=== PATIENT | male | born 2000 | race Caucasian/White ===

== ENCOUNTER 2021-10-27 09:19 | Outpatient (REF) | payer OTHER, MEDICAID, SELFPAY ==
[2021-10-27 11:36] LABS: Cholesterol 155 mg/dL; Glucose Fasting 95 mg/dL (60-99); HDL Cholesterol 23 mg/dL; LDL Cholesterol Calculated 54 mg/dl; Triglycerides 391 mg/dL
[2021-10-27 11:56] LABS: Estimated Average Glucose 111 mg/dL; Hemoglobin A1C 148.9187 umol/L; Hemoglobin A1c % 5.5 %
== END 2021-10-27 09:20 | disposition home or self-care (01) ==
LOC: HO.HMGCLDS 09:19
PROVIDERS: Absent Provider Nurse Practitioner Family; Visit Provider Pediatrics
DX: Z00.00 Encounter for general adult medical examination without abnormal findings (principal)
CPT/HCPCS: 36415; 80061; 82947; 83036

== ENCOUNTER → 2021-12-23 07:27 | Outpatient (REF) | payer OTHER, MEDICAID, SELFPAY ==
--- NOTE | 2021-12-23 07:30 | CA_ITS ---
Transthoracic Echocardiogram Patient (Last, First, Middle): Chicho Broussard Sean Gender: Male Date of : 2000 Age: 21 Procedure Date: 12/23/2021 Procedure Type: Transthoracic Echocardiogram Location: OP Height: 182.88 cm Weight: 113.4 kg BSA: 2.34 m2 Heart Rate: bpm BP: 115 / 75 mmHg Speedometer Mechanic: TO/YR Referring MD: Edward Nunez [facility] Symptoms: R01.1 - Cardiac murmur, unspecified Study Quality: Fair Conclusions: - Normal left ventricular size, thickness, systolic function, and wall motion. The visually estimated ejection fraction is between 55-60%. Diastolic function is normal for age. - Normal right ventricular cavity size and systolic function. Findings Left Ventricle Normal left ventricular size, thickness, systolic function, and wall motion. The visually estimated ejection fraction is between 55-60%. Diastolic function is normal for age. Right Ventricle Normal right ventricular cavity size and systolic function. Atria Both atria are normal in size. Aortic Valve Normal aortic valve structure and function. There is no aortic valve stenosis. There is no aortic valve regurgitation. Mitral Valve Normal mitral valve structure and function. There is no mitral valve regurgitation. There is no mitral valve stenosis. Pulmonic Valve Normal pulmonic valve structure and function. Tricuspid Valve Normal tricuspid valve structure and function. There is no tricuspid valve regurgitation. Tricuspid regurgitation envelope is inadequate for calculation of right ventricular systolic pressure. Indeterminate right atrial pressure. Great Vessels All visible segments of the aorta are normal in size. The visualized portions of the pulmonary artery and branches are normal. Venous The inferior vena cava was not well visualized. Pericardium/Pleural There is no evidence of pericardial effusion. Prior Study Comparison No prior study available for comparison. Measurements 2D Linear Measurements IVSd: 0.91 0.6-0.9/0.6-1.0 cm LVIDd: 5.39 3.9-5.3/4.2-5.9 cm LVIDd Index: 2.30 2.4-3.2/2.2-3.1 cm/m2 LVIDs: 3.65 2.0-3.6 cm LVPWd: 1.00 0.7-1.1 cm LA Diam: 4.20 2.7-3.8/3.0-4.0 cm LAIDs Index: 1.79 1.5-2.3 cm/m2 LV Mass: 241.89 67-162/88-224 g LV Mass Index: 103.37 43-95/49-115 g/m2 LVOT Diam: 2.20 3.0+(-)1.3 cm Mitral Valve MV Pk E: 0.82 MV PK A: 0.49 MV Decel Time: 246.00 E/A: 1.70 E'Lateral: 10.60 E'Medial: 9.79 E/E' Med: 8.40 E/E' Lat: 7.80 PHT: 72.00 MVA PHT: 3.06 Decel [place]: 3.34 Aortic Valve AoV Pk Michael: 1.71 AoV Mn Michael: 1.10 AoV VTI: 0.31 AoV Pk Grad: 12.00 Aov Mn Grad: 6.00 TYRON Cont.VTI: 2.33 LVOT LVOT Pk Michael: 1.02 LVOT Mn Michael: 0.65 LVOT VTI: 0.19 LVOT Pk Grad: 4.00 LVOT Mn Grad: 2.00 LVOT Diam: 2.20 LVOT Area: 3.80 Diastolic Function MV Pk E: 0.82 MV Pk A: 0.49 E/A: 1.70 E'Medial: 9.79 E/E' Med: 8.40 E' Laterial: 10.60 E/E' Lat: 7.80 Right Ventricle TAPSE (mm): 29.10 TVS' Michael: 13.60 Tricuspid Valve TR Pk Michael: 1.90 TR Pk Grad: 14.00 Great Vessels Aorta Sinus of Valsalva: 3.02 2.0-3.5 cm Ao Asc: 2.60 2.1-3.4 cm Updated in Other Vendor System with Status of Final Cuong Lloyd MD electronically signed on 12/24/2021 11:21:36 PM with status of Final
== END ==
LOC: HO.CARD 07:27
PROVIDERS: Visit Provider Nurse Practitioner Family
DX: R01.1 Cardiac murmur, unspecified (principal)
CPT/HCPCS: 93306

== ENCOUNTER 2022-06-13 10:46 | Outpatient (REF) | payer OTHER, MEDICAID, SELFPAY ==
[2022-06-13 14:09] LABS: MANUAL DIFF FLAG NO
[2022-06-13 14:22] LABS: Basophils Absolute Auto 0.1 X10*3/uL (0.0-0.2); Basophils Percent Auto 0.9 % (0-2); Eosinophils Absolute Auto 0.3 X10*3/uL (0.0-0.4); Eosinophils Percent Auto 2.7 % (0-4); Hematocrit 46.1 % (42.0-52.0); Hemoglobin 15.5 g/dl (14.0-18.0); Imm Gran Abs Auto 0.21 X10*3/uL (0.00-0.03); Lymphocytes Absolute Auto 2.2 X10*3/uL (1.2-4.9); Lymphocytes Percent Auto 20.8 % (20-40); Mean Corpuscular HGB Conc 33.6 g/dl (31.0-36.0); Mean Corpuscular Hemoglobin 29.6 pg (27.0-33.0); Mean Corpuscular Volume 88.1 fL (80.0-98.0); Mean Platelet Volume 10.5 fL (9.4-12.4); Monocytes Percent Auto 9.1 % (2-11); Neutrophils Absolute Auto 6.8 x10*3/uL (2.0-8.3); Neutrophils Percent Auto 64.5 % (45-73); Platelet Count 372 X10*3/uL (160-400); Red Blood Count 5.23 X10*6/uL (4.60-5.80); Red Cell Distribution Width 12.1 % (11.0-16.0); White Blood Count 10.5 X10*3/uL (4.8-10.8)
[2022-06-13 14:50] LABS: Alanine Aminotransferase 58 U/L (0-40); Albumin Level 4.7 g/dL (3.5-5.0); Alkaline Phosphatase 68 U/L (39-117); Anion Gap 16 (12-20); Aspartate Amino Transferase 39 U/L (5-37); Bilirubin Total 0.7 mg/dL (0.0-1.0); Blood Urea Nitrogen 12 mg/dL (9-16); Carbon Dioxide 25 mmol/L (22-29); Chloride 105 mmol/L (96-108); Cholesterol 189 mg/dL; Estimated Glomerular Filt Rate > 60; Glucose Fasting 104 mg/dL (60-99); HDL Cholesterol 28 mg/dL; Potassium 4.4 mmol/L (3.3-5.1); Sodium 142 mmol/L (135-145); Total Protein 7.8 g/dL (6.5-8.0); Triglycerides 684 mg/dL
== END 2022-06-13 10:47 | disposition home or self-care (01) ==
LOC: HO.HMGCLDS 10:46
PROVIDERS: PCP Nurse Practitioner Family; Visit Provider Nurse Practitioner Family
DX: E78.1 Pure hyperglyceridemia (principal)
CPT/HCPCS: 36415; 80053; 80061; 84443; 85025

== ENCOUNTER 2022-09-07 10:08 | Outpatient (REF) | payer OTHER, MEDICAID, SELFPAY ==
--- NOTE | ~2022-09-07 | US_ITS ---
EXAMINATION: US ABDOMEN COMPLETE CLINICAL INFORMATION: Abnormal levels of other serum enzymes. COMPARISON: None. TECHNIQUE: Real-time imaging of the abdominal viscera. Limited exam due to patient's inability to hold respirations. FINDINGS: PANCREAS: The visualized portions of the pancreas are unremarkable but a large portion of the gland is obscured by bowel gas. ABDOMINAL AORTA: The proximal, mid, and distal segments are normal in caliber. INFERIOR VENA CAVA: Visualized portions are normal. LIVER: The liver is enlarged measuring over 19 cm in cephalocaudad dimension. The liver contour is normal. There is diffuse increased liver parenchymal echogenicity, consistent with hepatic steatosis. No focal hepatic lesion. There is no intrahepatic biliary duct dilatation seen. GALLBLADDER: Normal. The gallbladder is physiologically distended without evidence of stones, sludge, polyps, wall thickening or pericholecystic fluid. COMMON BILE DUCT: Normal in caliber measuring 0.3 cm in diameter. RIGHT KIDNEY: A right-sided 0.9 cm benign Bosniak class I simple cyst is seen which needs no additional imaging or follow up. No solid renal masses. No hydronephrosis or renal calculi. The kidney measures 11.3 cm in maximum dimension. LEFT KIDNEY: Normal. No hydronephrosis. No renal calculi or focal parenchymal lesions. The kidney measures 13.5 cm in maximum dimension. SPLEEN: The spleen is enlarged measuring 15.4 cm in maximum dimension. FREE FLUID: None. US/US abdomen complete IMPRESSION: Enlarged fatty liver with splenomegaly.
== END 2022-09-07 10:09 | disposition home or self-care (01) ==
LOC: HO.HMGCX 10:08
PROVIDERS: PCP Nurse Practitioner Family; Visit Provider Nurse Practitioner Family
DX: R74.8 Abnormal levels of other serum enzymes (principal)
CPT/HCPCS: 76700

== ENCOUNTER 2022-09-21 10:31 | Emergency (ER) | payer OTHER, MEDICAID, SELFPAY ==
[2022-09-21 10:32] VITALS: BP 114/58; PULSE 58; RESP 19; TEMP 36.6; O2SAT 98; BMI 31.6
--- NOTE | 2022-09-21 10:58 | ED_ITS ---
HPI - Wound/Laceration General Chief Complaint: Wound/Laceration Stated Complaint: Facial lac Time Seen by Provider: 09/21/22 10:44 Source: other Mode of arrival: ambulatory Limitations: no limitations History of Present Illness HPI narrative: 21 yo nonverbal Autistic male presents to the ER for evaluation of a cut over his right eyebrow that he got earlier this morning when he hit himself in the face with a shower handle. prison staff at the bedside with the patient who provides history. He reports that when the patient has an outburst he usually take a warm shower and calms down. Today he was hitting himself in the head with the handheld shower head. He sustained a laceration to his right eyebrow. Staff cleaned it. There was some swelling around it. No further bleeding. He is UTD on all vaccinations. Much more calm at this time. Onset (ago): hour(s) Location: face Place: home Patient tetanus UTD: Yes Context: accidental Associated symptoms: none Related Data Home Medications Medication Instructions Recorded Confirmed propranolol 80 mg tablet mg PO BID 11/14/21 11/14/21 quetiapine 100 mg tablet mg PO 11/14/21 11/14/21 melatonin 3 mg tablet 3 mg PO BEDTIME 06/05/22 clonidine HCl 0.3 mg tablet 0.3 mg PO BEDTIME 08/25/22 Previous Rx's Medication Instructions Recorded nystatin 100,000 unit/gram topical 1 appl topical BID #15 grams 08/25/22 cream prednisone 20 mg tablet 40 mg PO DAILY 5 days #10 tabs 08/25/22 fenofibrate 54 mg tablet 54 mg PO DAILY 30 days #30 tabs 09/20/22 omega-3 acid ethyl esters 1 gram 1 cap PO BID 30 days #60 caps 09/20/22 capsule Allergies Allergy/AdvReac Type Severity Reaction Status Date / Time No Known Allergies Allergy Verified 09/21/22 09:54 Review of Systems Review of Systems: Yes Unobtainable due to mental condition PMFSH Past Medical History Medical History Acanthosis nigricans Fatty liver Splenomegaly Family History Family History Brother Mental health disorder Paternal Uncle Mental health disorder Social History Social History Housing: House Patient Tobacco Use Status: Never used Tobacco e-Cigarette/Vaping Use: Never Used Second Hand Smoke Exposure: No Advance Directives: No Advance Directives Information Provided: No Current occupational status: disabled Cognitive needs: Yes Hearing needs: Yes Vision needs: Yes Physical Exam Vital Signs: Vital Signs: Last Vital Signs Temp 98 F 09/21/22 10:32 Pulse 58 09/21/22 10:32 Resp 19 09/21/22 10:32 BP 114/58 L 09/21/22 10:32 Pulse Ox 98 09/21/22 10:32 O2 Del Method 09/21/22 10:32 BMI result Body Mass Index 31.6 Appearance: Alert male sitting up on the stretcher No acute distress. HEENT: right eyebrow with a small <1 cm superficial laceration and abrasion, no active bleeding. deep structures in tact. no gaping of the wound. PEERLA. EOMI. mild surrounding swelling and ecchymosis. CVS: Normal heart rate and rhythm. Pulses normal. Respiratory: No respiratory distress. Skin: Skin warm and dry. Normal skin color. Normal skin turgor. No rashes. Extremities: normal inspection x4, no areas of injury. Neuro: awake and alert, follows simple commands. nonverbal. Medical Decision Making Medical Decision Making MDM Narrative: Nonverbal 21 yo male presenting with superficial laceration and abrasion to right eyebrow after self inflicted injury w/ shower head. lac approximated well w/ skin glue. tdap utd. stable for d/c back to detention Differential Diagnosis Differential Diagnoses: The differential diagnosis associated with the presentation includes superficial laceration, abrasion, contusion, doubt any concussion, ICH, SDH Independent Historian Clinical information obtained from an independent historian. History obtained from or confirmed by: Other (detention work) External Record Review External record reviewed: Prior outpatient labs Chronic Conditions Patient?s care impacted by: Other (autism) Procedures Laceration Laceration 1: Site: face Side (If applicable): right Size (cm): 1 Description: irregular Depth: simple, single layer Pre-repair: irrigated extensively and deep structures intact Skin layer closed with: other (exofin skin adhesive) Discharge Plan Discharge Clinical Impression: Laceration, Abrasion Patient Disposition: Home, Self-Care Instructions: Facial Contusion (ED), Facial Laceration (ED) Additional Instructions: Skin glue was used to repair the wound and apply protective dressing. This will come off on its own usually within 1 week. Do not peel it off. Use ice to the area several times per day as needed for swelling and pain. Recommend [id number] Tylenol or Motrin as needed for pain. If he develops new or worsening symptoms call 911 or come back to the ER for further evaluation. Prescriptions: No Action fenofibrate 54 mg tablet 54 mg PO DAILY 30 Days Qty: 30 2RF omega-3 acid ethyl esters 1 gram capsule 1 cap PO BID 30 Days Qty: 60 3RF quetiapine 100 mg tablet PO propranolol 80 mg tablet PO BID Rx Instructions: 1 po q am and 1 1/2 po q 3 pm melatonin 3 mg tablet 3 mg PO BEDTIME clonidine HCl 0.3 mg tablet 0.3 mg PO BEDTIME prednisone 20 mg tablet 40 mg PO DAILY 5 Days Qty: 10 0RF nystatin 100,000 unit/gram cream 1 appl topical BID Qty: 15 0RF Interventions: ED Discharge Assessment Last Done: 09/21/22 11:08 Discharge Date/Time: 09/21/22 11:08
--- NOTE | 2022-09-21 11:03 | PC.NURSE ---
LAC to right eyebrow patient autistic caregiver at bedside. Provider applied dermabond will prepare for discharge
== END 2022-09-21 11:08 | disposition home or self-care (01) ==
PROVIDERS: Emergency Provider Emergency Medicine; PCP Nurse Practitioner Family
DX: S01.111A Laceration without foreign body of right eyelid and periocular area, initial encounter (principal); W22.8XXA Striking against or struck by other objects, initial encounter; Y93.E1 Activity, personal bathing and showering; Y92.012 Bathroom of single-family (private) house as the place of occurrence of the external cause; Y99.8 Other external cause status
CPT/HCPCS: 12011; 99282

== ENCOUNTER 2022-12-08 10:17 | Outpatient (REF) | payer OTHER, MEDICAID, SELFPAY ==
[2022-12-08 12:36] LABS: Alanine Aminotransferase 36 U/L (0-40); Albumin Level 4.3 g/dL (3.5-5.0); Alkaline Phosphatase 64 U/L (39-117); Anion Gap 13 (12-20); Aspartate Amino Transferase 28 U/L (5-37); Bilirubin Total 0.6 mg/dL (0.0-1.0); Blood Urea Nitrogen 10 mg/dL (9-16); Calcium 9.6 mg/dL (8.4-10.2); Carbon Dioxide 24 mmol/L (22-29); Chloride 106 mmol/L (96-108); Cholesterol 186 mg/dL; Estimated Glomerular Filt Rate > 60; Glucose Fasting 80 mg/dL (60-99); HDL Cholesterol 26 mg/dL; LDL Cholesterol Calculated 112 mg/dl; Potassium 4.7 mmol/L (3.3-5.1); Sodium 138 mmol/L (135-145); Total Protein 7.3 g/dL (6.5-8.0); Triglycerides 243 mg/dL
== END 2022-12-08 10:18 | disposition home or self-care (01) ==
LOC: HO.HMGCLDS 10:17
PROVIDERS: PCP Nurse Practitioner Family; Visit Provider Nurse Practitioner Family
DX: R74.8 Abnormal levels of other serum enzymes (principal)
CPT/HCPCS: 36415; 80053; 80061

== ENCOUNTER 2023-09-05 13:48 | Outpatient (AMB) | payer OTHER, MEDICAID, SELFPAY ==
--- NOTE | 2023-09-05 13:52 | MHC.PC.OV ---
Vital Signs 09/05/23 13:53 Height 6 ft Weight 224 lb 8 oz BMI 30.4 BP 102/60 Blood Pressure Location Lt brachial Position Sitting Pulse 81 Pulse Source Pulse Oximeter Pulse Oximetry (%) 97 Oxygen Delivery Method Room Air Intake Visit Reasons: Annual PE Intake Note: Pt is here for his Annual PE Allergies No Known Allergies Allergy (Verified 09/05/23 15:08) Medication List - Last Reconciled 09/05/23 by SANDRA Aguila carbamide peroxide 6.5% (Debrox) 5 drps otic (ears) DAILY clonidine HCl 0.3 mg PO BEDTIME fenofibrate 54 mg PO .every AM fluoxetine mg PO fluticasone propionate 50 mcg/actuation 2 sprays intranasal DAILY hydroxyzine HCl 50 mg PO BEDTIME ibuprofen 600 mg PO Q8H PRN melatonin 3 mg PO BEDTIME omega-3 acid ethyl esters 1 cap PO BID 30 days propranolol 1 po q am and 1 1/2 po q 3 pm quetiapine mg PO selenium sulfide 2.25% 1 appl topical BEDTIME PRN Tobacco use date assessed: 09/05/23 Dental Screening Dental Screen Date: 09/05/23 Did you have a dental visit in the last 12 months?: Yes Did you have a dental problem in the last 6 months where you did not have access to dental care?: No Was dental information given to patient?: Patient has dentist HPI Annual PE HPI Details Pt is here for a PE. Will order labs. Pt is nonverbal and has autism. Caregiver is in the room today (staff member from [facility]). [facility] Medical History Acanthosis nigricans Fatty liver Splenomegaly Family History Brother Mental health disorder Paternal Uncle Mental health disorder Social History Housing: House Patient Tobacco Use Status: Never used Tobacco e-Cigarette/Vaping Use: Never Used Second Hand Smoke Exposure: No Current occupational status: disabled Cognitive needs: Yes Hearing needs: Yes Vision needs: Yes Questionnaire PHQ-9 Over the last 2 weeks, how often have you been bothered by any of the following problems? 1. Little interest or pleasure in doing things: not at all 2. Feeling down, depressed, or hopeless: not at all 3. Trouble falling or staying asleep, or sleeping too much: not at all 4. Feeling tired or having little energy: not at all 5. Poor appetite or overeating: not at all 6. Feeling bad about yourself - or that you are a failure or have let yourself or your family down: not at all 7. Trouble concentrating on things, such as reading the newspaper or watching television: not at all Source: Developed by Drs. Joey Hall, Claudia Robin, Ulices Garces and colleagues, with an educational lisa from [employer]. Thrive Questionnaire Date Thrive assessed: 11/14/21 I am a: Parent/Caregiver What is your living situation today?: I have a steady place to live Within the past 12 months, did the food you bought not last and you didn't have the money to get more?: Never true Within the past 12 months, did you worry whether your food would run out before you got money to buy more?: Never true Do you have trouble paying for medicines?: No Do you have trouble getting transportation to medical appointments?: No Do you have trouble paying your heating and electricity bill?: No Do you have trouble taking care of your child, family member or friend?: No Do you have trouble with day-to-day activities such as bathing, preparing meals, shopping, managing finances, etc.?: Yes Are you currently unemployed and looking for a job?: I choose not to answer this question Are you interested in more education?: I choose not to answer this question Currently or been in a relationship where the following occur: no concerns reported THRIVE Score: 0 AUDIT C Alcohol Use Questionnaire (AUDIT-C) 1. How often do you have a drink containing alcohol?: Never 3. How often do you have six or more drinks on one occasion?: Never Total Score: 0 ELOISA-7 AMB Questionnaire ELOISA-7 Date ELOISA - 7 assessed: 09/05/23 Feeling nervous, anxious, or on edge: 1 = Several days Not being able to stop or control worryin = More than half the days Worrying too much about different things: 1 = Several days Trouble relaxin = Several days Being so restless that it is hard to sit still: 1 = Several days Becoming easily annoyed or irritable: 1 = Several days Feeling afraid as if something awful might happen: 1 = Several days Total ELOISA-7 score (0-4 normal; 5-9 mild; 10-14 moderate; 15-21 severe): 8 Source: Developed by Drs. Joey Hall, Claudia Robin, Ulices Garces and colleagues, with an educational lisa from [employer]. Review of Systems Const Denies chills and Denies fever(s) Eyes Denies blurry vision ENT Denies vertigo, Denies dizziness and Denies sore throat Card Denies chest pain at rest, Denies chest pain with activity, Denies diaphoresis, Denies dyspnea and Denies dyspnea on exertion Resp Denies cough, Denies dyspnea, Denies dyspnea on exertion and Denies wheezing GI Denies abdominal pain, Denies melena, Denies hematochezia, Denies constipation, Denies diarrhea and Denies loose stools Denies hematuria Musc Denies numbness and Denies tingling Skin/Breast Denies lesions Neuro Denies vertigo, Denies dizziness, Denies numbness and Denies tingling Psych Denies anxiety, Denies depression, Denies homicidal ideation, Denies suicidal ideation and Denies other (substance abuse) Aller/Immun Denies wheezing Physical exam (Primary Care) Vital Signs: Last Vital Signs Pulse 81 09/05/23 13:53 BP 102/60 09/05/23 13:53 Pulse Ox 97 09/05/23 13:53 Oxygen Delivery Method Room Air 09/05/23 13:53 BMI result Body Mass Index 30.4 Tobacco/Smoking Status: Tobacco use Status Tobacco use date assessed 09/05/23 09/05/23 14:00 Patient Tobacco Use Status Never used Tobacco 09/05/23 14:00 e-Cigarette/Vaping Use Never Used 09/05/23 14:00 Thrive Assessment: Date of Thrive Assessment Date Thrive assessed 11/14/21 09/05/23 14:00 Currently or been in a relationship where the following occur: no concerns reported Const General: cooperative Nutritional Appearance: well nourished Orientation/consciousness: patient oriented x3 HENMT Other: minimal cerumen to left ear canal Head: Yes normal to inspection, Yes normocephalic and Yes atraumatic Eyes General: appearance normal, both eyes and all related structures Alignment and Position: alignment normal and position normal Neck Neck: Yes normal visual inspection and Yes no lymphadenopathy Thyroid: Thyroid normal Resp Effort & Inspection: normal respiratory effort Auscultation: clear to auscultation bilaterally Cardio Rate: regular rate Rhythm: regular rhythm Heart sounds: S1 normal heart sound present, S2 normal heart sound present and no murmurs GI Other: diapered Palpation (GI): Soft to palpation and nontender Auscultation: normal bowel sounds Other: diapered Male General Exam: Yes normal external exam Penis: normal penis Scrotum: scrotum normal, testes descended bilaterally and no inguinal hernias Testes: no testicular mass Skin Rashes: no rashes Neuro General: patient oriented x3, moves all extremities, no focal motor deficits and deep tendon reflexes 2+ bilaterally Romberg Test: Negative Psych Other: nonverbal Appearance: grossly normal Affect: normal affect Attitude: cooperative Assessment and Plan Assessment & Plan (1) Nonverbal: Code(s): R47.01 - Aphasia Plan: Caregiver in room today, continue to monitor (2) Autistic disorder: Code(s): F84.0 - Autistic disorder Plan: Caregiver in room today, continue to monitor (3) Physical exam: Code(s): Z00.00 - Encounter for general adult medical examination without abnormal findings (4) Dandruff: Code(s): L21.0 - Seborrhea capitis Plan The patient agreed to the use of a certified medical assistant for this encounter. Scribed for SANDRA Salazar by Roxanna Eaton certified medical assistant, on 09/05/2023 at 14:20 EST. Orders: Orders Comprehensive [place]. Panel Fast Today F84.0 - Autistic disorder, R47.01 - Aphasia, Z00.00 - Encounter for general adult medical examination without abnormal findings TSH reflex Free T4 Today F84.0 - Autistic disorder, R47.01 - Aphasia, Z00.00 - Encounter for general adult medical examination without abnormal findings Lipid Panel Today F84.0 - Autistic disorder, R47.01 - Aphasia, Z00.00 - Encounter for general adult medical examination without abnormal findings Complete Blood Count Auto Diff Today F84.0 - Autistic disorder, R47.01 - Aphasia, Z00.00 - Encounter for general adult medical examination without abnormal findings UA CC w/rflx Micro + Cult Today F84.0 - Autistic disorder, R47.01 - Aphasia, Z00.00 - Encounter for general adult medical examination without abnormal findings Medications: Changed From selenium sulfide 2.25% massage into affected area; leave on for 10 mins ; rinse off thoroughly 1 appl topical BEDTIME 180 mL 0RF 7 days To selenium sulfide 2.25% massage into affected area; leave on for 10 mins ; rinse off thoroughly 1 appl topical BEDTIME PRN Coding Level of Care Code Est Pt Prev Care [id number]) Diagnoses Nonverbal R47.01 Autistic disorder F84.0 Physical exam Z00.00 Dandruff L21.0
[2023-09-05 13:53] VITALS: BP 102/60; PULSE 81; O2SAT 97; BMI 30.4
== END 2023-09-05 15:46 | disposition home or self-care (01) ==
LOC: HO.HMGC 13:48
PROVIDERS: PCP Nurse Practitioner Family; Visit Provider Nurse Practitioner Family
DX: Z00.00 Encounter for general adult medical examination without abnormal findings (principal); F84.0 Autistic disorder; L21.9 Seborrheic dermatitis, unspecified
CPT/HCPCS: 99395

== ENCOUNTER 2024-02-28 11:40 | Outpatient (REF) | payer OTHER, MEDICAID, SELFPAY ==
[2024-02-28 13:21] LABS: MANUAL DIFF FLAG NO
[2024-02-28 13:31] LABS: Basophils Absolute Auto 0.1 X10*3/uL (0.0-0.2); Basophils Percent Auto 1.1 % (0-2); Eosinophils Absolute Auto 0.3 X10*3/uL (0.0-0.4); Eosinophils Percent Auto 3.1 % (0-4); Hematocrit 42.7 % (42.0-52.0); Imm Gran Abs Auto 0.13 X10*3/uL (0.00-0.03); Imm Gran Pct Auto 1.5 % (0.0-0.4); Lymphocytes Absolute Auto 2.1 X10*3/uL (1.2-4.9); Lymphocytes Percent Auto 24.8 % (20-40); Mean Corpuscular HGB Conc 35.1 g/dl (31.0-36.0); Mean Corpuscular Volume 82.6 fL (80.0-98.0); Mean Platelet Volume 9.8 fL (9.4-12.4); Monocytes Absolute Auto 0.8 X10*3/uL (0.1-1.2); Monocytes Percent Auto 8.8 % (2-11); Neutrophils Absolute Auto 5.2 x10*3/uL (2.0-8.3); Neutrophils Percent Auto 60.7 % (45-73); Platelet Count 396 X10*3/uL (160-400); Red Blood Count 5.17 X10*6/uL (4.60-5.80); Red Cell Distribution Width 13.5 % (11.0-16.0); White Blood Count 8.5 X10*3/uL (4.8-10.8)
[2024-02-28 13:48] LABS: Alanine Aminotransferase 21 U/L (0-40); Albumin Level 4.3 g/dL (3.5-5.0); Alkaline Phosphatase 50 U/L (39-117); Anion Gap 10 (12-20); Aspartate Amino Transferase 21 U/L (5-37); Bilirubin Total 0.5 mg/dL (0.0-1.0); Blood Urea Nitrogen 13 mg/dL (9-16); Calcium 9.8 mg/dL (8.4-10.2); Carbon Dioxide 24 mmol/L (22-29); Chloride 109 mmol/L (96-108); Cholesterol 207 mg/dL (<200); Estimated Glomerular Filt Rate > 60; Glucose Fasting 88 mg/dL (60-99); HDL Cholesterol 28 mg/dL (>40); LDL Cholesterol Calculated 133 mg/dL (<100); Potassium 4.2 mmol/L (3.3-5.1); Sodium 139 mmol/L (135-145); Total Protein 7.4 g/dL (6.5-8.0); Triglycerides 232 mg/dL (<150)
[2024-02-28 14:06] LABS: TSH reflex Free T4 2.37 uIU/mL (0.32-4.0)
== END 2024-02-28 11:41 | disposition home or self-care (01) ==
LOC: HO.HMGCLDS 11:40
PROVIDERS: PCP Nurse Practitioner Family; Visit Provider Nurse Practitioner Family
DX: Z00.00 Encounter for general adult medical examination without abnormal findings (principal); R47.01 Aphasia
CPT/HCPCS: 36415; 80053; 80061; 84443; 85025

== ENCOUNTER 2024-04-01 09:04 | Outpatient (AMB) | payer OTHER, MEDICAID, SELFPAY ==
[2024-04-01 09:08] VITALS: BP 108/62; PULSE 73; O2SAT 98; BMI 32.5
--- NOTE | 2024-04-01 09:08 | MHC.PC.OV ---
Vital Signs 04/01/24 09:08 Height 6 ft Weight 240 lb BMI 32.5 BP 108/62 Blood Pressure Location Rt brachial Position Sitting Pulse 73 Pulse Source Pulse Oximeter Pulse Oximetry (%) 98 Intake Visit Reasons: 6 mon f.u Intake Note: pt is here for 6 month follow up, patient has had recent vsits to to ED due to behavioral issues. Certified Scrum Master Required: No Accompanied by: Self / Same As Patient Allergies No Known Allergies Allergy (Verified 04/01/24 09:28) Medication List - Last Reconciled 04/01/24 by SANDRA Aguila bisacodyl 10 mg FL DAILY PRN clonidine HCl 0.3 mg PO BEDTIME docusate sodium (Colace) 100 mg PO BID 90 days fenofibrate 54 mg PO .every AM fluoxetine 40 mg PO fluticasone propionate 50 mcg/actuation 2 sprays intranasal DAILY hydroxyzine HCl 50 mg PO BEDTIME ibuprofen 600 mg PO Q8H PRN 30 days melatonin 3 mg PO BEDTIME omega-3 acid ethyl esters 1 cap PO BID polyethylene glycol 3350 (Miralax) 17 grams PO DAILY PRN 30 days propranolol 1 po q am and 1 1/2 po q 3 pm quetiapine mg PO TID selenium sulfide 2.25% 1 appl topical BEDTIME PRN topiramate (Topamax) 25 mg PO BEDTIME Tobacco use date assessed: 09/05/23 Dental Screening Dental Screen Date: 09/05/23 HPI 6 mon f.u HPI Details Pt was recently seen in the ER on 03/29 for behavioral issues. Staff member from [facility] reports that the power went out and pt became very agitated because he could not watch TV. He started hitting his head on objects and was brought to the ER at [facility] (911 called, transported by ambulance). Missing notes on this. Pt had a small laceration above his right eyebrow and ecchymosis below his left eye. These are healing well. Pt is nonverbal, though he does respond to cues. no s/s of current hostility, CP, SOB. PFSH Medical History Splenomegaly Fatty liver Acanthosis nigricans Surgical History No pertinent past surgical history Family History Brother Mental health disorder Paternal Uncle Mental health disorder Social History Housing: House Patient Tobacco Use Status: Never used Tobacco e-Cigarette/Vaping Use: Never Used Second Hand Smoke Exposure: No Current occupational status: disabled Cognitive needs: Yes Hearing needs: Yes Vision needs: Yes Questionnaire Thrive Questionnaire Date Thrive assessed: 11/14/21 Within the past 12 months, did the food you bought not last and you didn't have the money to get more?: Never true Within the past 12 months, did you worry whether your food would run out before you got money to buy more?: Never true Do you have trouble paying for medicines?: No Do you have trouble getting transportation to medical appointments?: No Do you have trouble paying your heating and electricity bill?: No Do you have trouble taking care of your child, family member or friend?: I choose not to answer this question Do you have trouble with day-to-day activities such as bathing, preparing meals, shopping, managing finances, etc.?: Yes Are you currently unemployed and looking for a job?: I choose not to answer this question Are you interested in more education?: I choose not to answer this question Please select the resources that you would like help with: None Currently or been in a relationship where the following occur: I choose not to answer THRIVE Score: 0 ELOISA-7 AMB Questionnaire ELOISA-7 Date ELOISA - 7 assessed: 09/05/23 Not being able to stop or control worryin = Not at all Worrying too much about different things: 0 = Not at all Feeling afraid as if something awful might happen: 0 = Not at all Source: Developed by Drs. Joey Hall, Claudia Robin, Ulices Garces and colleagues, with an educational lisa from [employer]. Review of Systems Const Reports as per HPI Physical exam (Primary Care) Vital Signs: Last Vital Signs Pulse 73 04/01/24 09:08 BP 108/62 04/01/24 09:08 Pulse Ox 98 04/01/24 09:08 BMI result Body Mass Index 32.5 Tobacco/Smoking Status: Tobacco use Status Tobacco use date assessed 09/05/23 04/01/24 09:09 Patient Tobacco Use Status Never used Tobacco 04/01/24 09:09 e-Cigarette/Vaping Use Never Used 04/01/24 09:09 Thrive Assessment: Date of Thrive Assessment Date Thrive assessed 11/14/21 04/01/24 09:09 Currently or been in a relationship where the following occur: I choose not to answer Const General: cooperative Orientation/consciousness: patient oriented x3 Resp Effort & Inspection: normal respiratory effort Auscultation: clear to auscultation bilaterally Cardio Rate: regular rate Rhythm: regular rhythm Heart sounds: S1 normal heart sound present and S2 normal heart sound present Skin Other: just superior to right eyebrow with linear healing laceration, no signs of infection, fading ecchymosis just inferior to left eye Neuro General: patient oriented x3 Psych Appearance: grossly normal Mental Status: mental status grossly normal Affect: normal affect Assessment and Plan Assessment & Plan (1) Laceration of right eyebrow: Code(s): S01.111A - Laceration without foreign body of right eyelid and periocular area, initial encounter Plan: healing (2) Autistic disorder: Code(s): F84.0 - Autistic disorder (3) Nonverbal: Code(s): R47.01 - Aphasia (4) Agitation: Code(s): R45.1 - Restlessness and agitation Plan: calm currently, responds to cues. Plan The patient agreed to the use of a diploma medical assistant for this encounter. Scribed for SANDRA Salazar by Roxanna Eaton diploma medical assistant, on 04/01/2024 at 09:15 EST. Coding Level of Care Code Est Pt Level 3 (17983) Diagnoses Laceration of right eyebrow S01.111A Autistic disorder F84.0 Nonverbal R47.01 Agitation R45.1
== END 2024-04-01 10:25 | disposition home or self-care (01) ==
PROVIDERS: PCP Nurse Practitioner Family; Visit Provider Nurse Practitioner Family
DX: S01.111A Laceration without foreign body of right eyelid and periocular area, initial encounter (principal); R47.01 Aphasia; R45.1 Restlessness and agitation

== ENCOUNTER → 2024-04-01 09:04 | Outpatient (BNVA) | payer OTHER, MEDICAID, SELFPAY | PROVIDERS: PCP Nurse Practitioner Family; Visit Provider Nurse Practitioner Family | DX: F84.0 Autistic disorder (principal); R45.1 Restlessness and agitation; S01.111D Laceration without foreign body of right eyelid and periocular area, subsequent encounter ==

== ENCOUNTER 2024-08-07 13:51 | Outpatient (AMB) | payer OTHER, MEDICAID, SELFPAY ==
--- NOTE | 2024-08-07 14:07 | A.OFFPC_ITS ---
Vital Signs 08/07/24 14:15 Height 6 ft Weight 246 lb BMI 33.4 BP 110/70 Blood Pressure Location Lt brachial Position Sitting Respiration 16 Pulse 70 Pulse Source Pulse Oximeter Pulse Oximetry (%) 97 Oxygen Delivery Method Room Air Intake Visit Reasons: Pre-Op Allergies No Known Allergies Allergy (Verified 04/01/24 09:28) Medication List - Last Reconciled 08/07/24 by GILMER AguilaP- clonidine HCl 0.3 mg PO BEDTIME docusate sodium (Colace) 100 mg PO BID 90 days fenofibrate 54 mg PO QAM fluoxetine 40 mg PO fluticasone propionate 50 mcg/actuation 2 sprays intranasal DAILY hydroxyzine HCl 50 mg PO BEDTIME ibuprofen 600 mg PO Q8H PRN 30 days melatonin 3 mg PO BEDTIME omega-3 acid ethyl esters 1 cap PO BID polyethylene glycol 3350 (Miralax) 17 grams PO DAILY PRN 30 days propranolol 1 po q am and 1 1/2 po q 3 pm quetiapine mg PO TID selenium sulfide 2.25% 1 appl topical BEDTIME PRN topiramate (Topamax) 25 mg PO BEDTIME Tobacco use date assessed: 08/07/24 Dental Screening Dental Screen Date: 09/05/23 HPI Pre-Op HPI Details Chief Complaint Preoperative clearance needed for dental cleaning under general anesthesia. History of Present Illness The patient is a 23-year-old male presenting with a request for preoperative clearance for a dental cleaning procedure. He resides in a [place] [facility] and is accompanied by two staff members. The patient has severe autism and is primarily nonverbal. Due to his condition, he experiences significant agitation, necessitating general anesthesia for dental procedures. The staff reports no recent symptoms of fever, chills, nausea, or vomiting currently. However, the patient experienced diarrhea and vomiting over a week ago, which could have been due to either Norovirus or an adverse reaction to a laxative. These symptoms have since resolved, and there are no current or recent illnesses reported. Social History - Resides in a [place] [facility] environment. - Primarily nonverbal, indicative of sev ere autism spectrum disorder. Health Maintenance Review of Systems - General: Denies fever, chills, nausea, or vomiting (staff reported) - Gastrointestinal: Recent resolution of diarrhea and vomiting with no current symptoms (staff reported) Physical Exam General: Cooperative, healthy appearing, comfortable, no acute distress and well developed, obese, Orientation: Patient non verbal Limitations: autistic, nonverbal Head: Normal to inspection Ears: Hearing grossly normal bilaterally Nose: Normal external nose present Face and sinus: Normal facial exam Eyes: Appearance normal, both eyes and all related structures Neck: Normal visual inspection and Yes full ROM, no signs of lymphadenopathy Respiratory: Normal respiratory effort and able to speak in complete sentences. Clear to auscultation bilaterally Cardiovascular: Regular rate and rhythm. Normal S1 and S2 GI: Normal to inspection. Soft to palpation and nontender Skin: No rashes or lesions noted Neuro: Patient oriented x3 Extremities: Normal to inspection Results Plan - Obtain basic laboratory tests to ensur e preoperative fitness for dental cleaning under general anesthesia. - Monitor for any recurrence of gastroin testinal symptoms that may impact the dental procedure. - Address obesity as part of long-term h ealt management by coordinating with the [place] [facility] staff for possible interventions. Patient was informed and verbally consented to the use of an ambient scribe for clinic note documentation during this visit. Discussion Notes I discussed the need for preoperative clearance for the patient's upcoming dental cleaning due to his severe autism, which requires the use of general anesthesia to manage his agitation. I explained that a basic set of labs would be obtained to ensure there are no underlying issues that might complicate the procedure. Due to the patient's recent history of gastrointestinal symptoms, I advised monitoring for any recurrence. Additionally, we touched upon the aspect of managing the patient's obesity for his overall long-term health. The staff members were informed accordingly and consent was obtained to proceed with the necessary assessments. Patient Instructions - Ensure adherence to any preoperative i nstructions provided by the dental team. - Report any new or worsening symptoms p rior to the dental procedure. - Follow any dietary and lifestyle recom mendations given by the [place] [facility] staff to manage weight. [facility] Medical History Splenomegaly Fatty liver Acanthosis nigricans Surgical History No pertinent past surgical history Family History Brother Mental health disorder Paternal Uncle Mental health disorder Social History Housing: House Patient Tobacco Use Status: Never used Tobacco e-Cigarette/Vaping Use: Never Used Second Hand Smoke Exposure: No Current occupational status: disabled Cognitive needs: Yes Hearing needs: Yes Vision needs: Yes Questionnaire PHQ-9 Over the last 2 weeks, how often have you been bothered by any of the following problems? 1. Little interest or pleasure in doing things: not at all 2. Feeling down, depressed, or hopeless: not at all 3. Trouble falling or staying asleep, or sleeping too much: not at all 4. Feeling tired or having little energy: not at all 5. Poor appetite or overeating: not at all 6. Feeling bad about yourself - or that you are a failure or have let yourself or your family down: not at all 7. Trouble concentrating on things, such as reading the newspaper or watching television: not at all 8. Moving or speaking so slowly that other people could have noticed. Or the opposite - being so fidgety or restless that you have been moving around a lot more than usual: not at all 9. Thoughts that you would be better off or of hurting yourself in some way: not at all Total score: 0 Depression Screening Interpretation: Negative Depression Screening Done: Yes 31788 - PHQ-9 Billing: Yes Source: Developed by Drs. Joey Hall, Claudia Robin, Ulices Garces and colleagues, with an educational lisa from [employer]. Thrive Questionnaire Date Thrive assessed: 07/31/24 I am a: Parent/Caregiver What is your living situation today?: I have a steady place to live Within the past 12 months, did the food you bought not last and you didn't have the money to get more?: Never true Within the past 12 months, did you worry whether your food would run out before you got money to buy more?: Never true Do you have trouble paying for medicines?: No Do you have trouble getting transportation to medical appointments?: No Do you have trouble paying your heating and electricity bill?: No Do you have trouble taking care of your child, family member or friend?: No Do you have trouble with day-to-day activities such as bathing, preparing meals, shopping, managing finances, etc.?: Yes Are you currently unemployed and looking for a job?: No Are you interested in more education?: No Please select the resources that you would like help with: None Currently or been in a relationship where the following occur: I choose not to answer THRIVE Score: 0 AUDIT C Alcohol Use Questionnaire (AUDIT-C) 1. How often do you have a drink containing alcohol?: Never 3. How often do you have six or more drinks on one occasion?: Never Total Score: 0 Score Reviewed/Action Taken: Yes ELOISA-7 AMB Questionnaire ELOISA-7 Date ELOISA - 7 assessed: 08/07/24 Feeling nervous, anxious, or on edge: 0 = Not at all Not being able to stop or control worryin = Not at all Worrying too much about different things: 0 = Not at all Trouble relaxin = Not at all Being so restless that it is hard to sit still: 0 = Not at all Becoming easily annoyed or irritable: 0 = Not at all Feeling afraid as if something awful might happen: 0 = Not at all Total ELOISA-7 score (0-4 normal; 5-9 mild; 10-14 moderate; 15-21 severe): 0 Source: Developed by Drs. Joey Hall, Claudia Robin, Ulices Garces and colleagues, with an educational lisa from [employer]. ELOISA-7 Assessment Billing ELOISA-7 Assessment Tool: ELOISA-7 Assessment 45105 Physical exam (Primary Care) Vital Signs: Last Vital Signs Pulse 70 08/07/24 14:15 Resp 16 08/07/24 14:15 BP 110/70 08/07/24 14:15 Pulse Ox 97 08/07/24 14:15 Oxygen Delivery Method Room Air 08/07/24 14:15 BMI result Body Mass Index 33.4 Tobacco/Smoking Status: Tobacco use Status Tobacco use date assessed 08/07/24 08/07/24 14:20 Patient Tobacco Use Status Never used Tobacco 08/07/24 14:09 e-Cigarette/Vaping Use Never Used 08/07/24 14:09 PHQ-9: PHQ-9 Score PHQ-9: Total score 0 08/07/24 14:20 Depression Screening Interpretation: Negative Thrive Assessment: Date of Thrive Assessment Date Thrive assessed 07/31/24 08/07/24 14:09 Currently or been in a relationship where the following occur: I choose not to answer Coding Level of Care Code Est Pt Prev Care 18-39y(80317) Diagnoses Pre-op evaluation Z01.818 Additional Codes ELOISA-7 Assessment Billing - ELOISA-7 Assessment Tool: ELOISA-7 Assessment 67700 ([id number]) PHQ-9 - 99294 - PHQ-9 Billing: Yes ([id number]) Assessment & Plan Assessment & Plan (1) Pre-op evaluation: Code(s): Z01.818 - Encounter for other preprocedural examination Category: Medical Plan . Orders: Orders Complete Blood Count Auto Diff Today Z01.818 - Encounter for other preprocedural examination Comprehensive Met. Panel Today Z01.818 - Encounter for other preprocedural examination TSH reflex Free T4 Today Z01.818 - Encounter for other preprocedural examination UA CC w/rflx Micro + Cult Today Z01.818 - Encounter for other preprocedural examination
[2024-08-07 14:15] VITALS: BP 110/70; PULSE 70; RESP 16; O2SAT 97; BMI 33.4
--- OUTSIDE RECORDS SUMMARY | 2024-08-07 17:44 | XMS_ITS | Encounter Summary ---
Author Organization [facility] Address [address] [place] [address] Phone Care Team Providers Care Laser Set Up Operator Name Role Phone Radha Christian MD Primary Care Provider Unava ilable Encounter Details Date Type Department Care Team (Late st Contact Info) Description 11/07/2016 Documentation EM Family Medicine [address] [place], [place] [phone] Family Medicine, Physician [address] [place] [address] Social History Tobacco Use Types Packs/Day Years Used Date Smoking Tobacco: Never Assessed Sex and Gender Information Value Date Recorded Sex Assigned at Not on file Legal Sex Male 5:23 PM EDT Gender Identity Not on file Sexual Orientation Not on file documented as of this encounter Plan of Treatment Not on file documented as of this encounter Visit Diagnoses Not on filedocumented in this encounter Care Teams Laser Set Up Operator Relationship Specialty Start Date End Date Radha Christian MD PCP - General 02/16/17 08/08/17 documented as of this encounter
--- OUTSIDE RECORDS SUMMARY | 2024-08-07 17:44 | XMS_ITS | Encounter Summary ---
Author Organization [facility] Address [address] [place] [address] Phone Care Team Providers Care Director Electronics Name Role Phone Radha Christian MD Primary Care Provider Unava ilable Encounter Details Date Type Department Care Team (Late st Contact Info) Description 12/12/2016 Documentation EM Family Medicine [address] [place], [place] [phone] Family Medicine, Physician [address] [place] [address] Social History Tobacco Use Types Packs/Day Years Used Date Smoking Tobacco: Never Comments:Never smoker Sex and Gender Information Value Date Recorded Sex Assigned at Not on file Legal Sex Male 5:23 PM EDT Gender Identity Not on file Sexual Orientation Not on file documented as of this encounter Plan of Treatment Not on file documented as of this encounter Visit Diagnoses Not on filedocumented in this encounter Care Teams Director Electronics Relationship Specialty Start Date End Date Radha Christian MD PCP - General 02/16/17 08/08/17 documented as of this encounter
--- OUTSIDE RECORDS SUMMARY | 2024-08-07 17:44 | XMS_ITS | Encounter Summary ---
Author Organization [facility] Address [address] [place] [address] Phone Care Team Providers Care Electronic Development Technician Name Role Phone Radha Christian MD Primary Care Provider Unava ilable Encounter Details Date Type Department Care Team (Late st Contact Info) Description 12/12/2016 Documentation EM Family Medicine [address] [place], [place] [phone] Family Medicine, Physician [address] [place] [address] Social History Tobacco Use Types Packs/Day Years [...] on filedocumented in this encounter Care Teams Electronic Development Technician Relationship Specialty Start Date End Date Radha Christian MD PCP - General 02/16/17 08/08/17 documented as of this encounter
--- OUTSIDE RECORDS SUMMARY | 2024-08-07 17:44 | XMS_ITS | Encounter Summary ---
Author Organization [facility] Address [address] [place] [address] Phone Care Team Providers Care Bookstore Manager Name Role Phone Radha Christian MD Primary Care Provider Unava ilable Encounter Details Date Type Department Care Team (Late st Contact Info) Description 09/22/2016 Documentation EM Family Medicine [address] [place], [place] [phone] Family Medicine, Physician [address] [place] [address] Social History Tobacco Use Types Packs/Day Years [...] on filedocumented in this encounter Care Teams Bookstore Manager Relationship Specialty Start Date End Date Radha Christian MD PCP - General 02/16/17 08/08/17 documented as of this encounter
--- OUTSIDE RECORDS SUMMARY | 2024-08-07 17:44 | XMS_ITS | Clinical Summary ---
Author Organization [facility] Address [address] [place] [address] Phone Care Team Providers Care Plastic Bubble Packer Name Role Phone Unavailable Primary Care Provider Unavailabl e Allergies Active Allergy Reactions Criticality Noted Date Comments Amoxicillin-Pot Clavulanate Rash Low Cheese 09/27/2021 Chocolate 09/27/2021 Clindamycin Hives Sulfadiazine 09/27/2021 Medications QUEtiapine 100 MG tablet Take by mouth. 7 Active topiramate 50 MG tablet Take by mouth. 7 Active propranolol XL 120 MG 24 hr capsule Take 120 mg by mouth nightly. Active hydrOXYzine 100 MG capsule Take 100 mg by mouth once. PRN Active cloNIDine 0.1 MG tablet TAKE 3 TABLETS BY MOUTH AT BEDTIME & 1 TABLET AT 3AM 4 8 Active ibuprofen 100 MG chewable tabletIndicatio ns:Dysfunction of both eustachian tubes Chew 8 tablets (800 mg total) every 6 (six) hours as needed for moderate pain. Take 3 tablets q6-8h PRN 100 tablet 8 Active Additional Information Patient not taking.Reported on 09/27/2021 fluticasone 50 MCG/ACT nasal spray Administer 1 spray into each nostril daily. Active melatonin tablet Take 3 mg by mouth. Active Active Problems Problem Noted Date Diagnosed Date History of COVID-19 10/10/2021 Overview (10/10/2021): Tested positive in 04/2020 following at-school exposure. Remained asymptomatic. BMI 37.0-37.9, adult 07/19/2020 Counseling and coordination of care 12/11/2018 Nonintractable episodic headache 11/30/2017 Aggressive behavior of adolescent 09/23/2016 Overview (10/11/2017): Has episodes of anxiety assoc with aggressive behavior - violent outbreaks with self harm (bites/ hits himself) and danger to others (bites, throws things). Parent sometimes needs to call EMS for crisis eval in the ER. Has ativan prn. 09/22. Takes hydroxyzine 50-100mg as needed for agitation. Anxiety 09/23/2016 Overview (11/01/2021): .Gets anxious at times and becomes aggressive/ violent outbursts. Causes self harm at times (bites, hits himself) and can be dangerous to others. 09/22. Takes hydroxyzine 50-100 mg as needed for agitation. Sleep disorder 07/29/2014 Overview (08/09/2017): On clonidine qhs with good effect. 04/22 Autism spectrum disorder 08/11/2009 Overview (10/11/2017): Goes to [employer] in [place]. Psych affiliated with the school prescribes his medication. Is on seroquel tid, propranolol bid, topamax bid, and clonidine qhs for sleep. 10/24. Parents are applying for guardianship as he approaches age 17. 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 Immunizations Name Administration Dates Next Due DTaP 5 12/21/2003, 1,05/23/2000,03/23,01/09/2000 Hep B, ped/adol 08/22/2000,01/09/2000,1999 Hib (PRP-T) 01/02/2001, 0,03/23/2000,01/08 IPV 12/21/2003, 1,03/23/2000,01/08 Influenza Split 05/21/2013,05/09/2012 Influenza, injectable, quadrivalent 04/21/2015 Influenza, injectable, quadr ivalent, preservative free 05/31/2021,06/27/2020,07/16/2018 Influenza, injectable, trivalent 06/14/2009 MMR 12/21/2003,11/12/2000 Meningococcal Conj (Menactra) MCV4P 12/03/2018,0 03/19/2013 Pneumococcal Conjugate 01/02/2001,2000,05/23/2000,03/23 Tdap 09/27/2021,05/09/2012 Varicella 05/21/2013,11/12/2000 Family History Medical History Relation Name Comments Hyperlipidemia Father Hypertension Father No Known Problems Mother Relation Name Status Comments Brother Alive Brother: Autism Father Alive Father: Hyperte nsion, elevated cholesteral Mother Alive Mother: Alive a nd well Social History Tobacco Use Types Packs/Day Years Used Date Smoking Tobacco: Never Smokeless Tobacco: Never Comments:Never smoker Hunger/Food Answer Date Recorded In the last 12 months, did y ou or your family ever eat less than you felt you should because there wasn't enough money for food? No 09/27/2021 Stable Housing Answer Date Recorded Are you worried that in the next 2 months you may not have stable housing? No 09/27/2021 Transportation Concerns Answer Date Rec orded In the last 12 months, have you or your family ever had to go without healthcare because you didn't have a way to get there? No 09/27/2021 Hazards in Home Answer Date Recorded Think about the place you li ve. Do you have problems with any of the following? Pests (mice or roaches), mold, no/not working smoke detectors, water leaks, no window guards. No 2021 Financing Utilities Answer Date Recorde d In the last 12 months, has t he electric, gas, oil, or water company threatened to shut off your services in your home? No 09/27/2021 Safety at Home Answer Date Recorded Are you or your family worried about feeling saf e in your home? No 09/27/2021 Outside Support Answer Date Recorded Do you feel that you need mo re support from other people or programs to help you care for yourself or your family? No 09/27/2021 Understanding Health Concerns Answer Da te Recorded Do you need help understandi ng your or your child's healthcare needs (diagnosis, medications, plan, etc.)? No 09/27/2021 Financing Health Concerns Answer Date R ecorded In the last 12 months, was t here a time when your child needed to see a doctor or get medications or supplies but could not because of cost? No 09/27/2021 Missing School or Work Answer Date Gianni rded Did you or your child miss s chool or work because of a health problem that could have been avoided? No 09/27/2021 Sex and Gender Information Value Date Recorded Sex Assigned at Not on file Legal Sex Male 5:23 PM EDT Gender Identity Not on file Sexual Orientation Not on file Last Filed Vital Signs Vital Sign Reading Time Taken Comments Blood Pressure 124/67 09/27/2021 10:50 AM EDT Pulse 73 09/27/2021 10:50 AM EDT Temperature 36.7 ??C (98.1 ??F) 04/11/2019 2:22 PM ED T Respiratory Rate - - Oxygen Saturation 99% 05/21/2013 12:00 AM EST Inhaled Oxygen Concentration - - Weight 120 kg (265 lb 3.2 oz) 09/27/2021 10:50 A M EDT Height 179.1 cm (5' 10.5 ) 09/27/2021 10:50 AM E DT Body Mass Index 37.51 09/27/2021 10:50 AM EDT Plan of Treatment Health Maintenance Due Date Last Done Comments HPV Vaccines (1 - Male 3-dose series) 11/01/2014 Glucose/HbA1C 12/21/2019 12/20/2018 LDL-C/Cholesterol 12/21/2019 12/20/2018 Influenza Vaccines (#1) 2024 05/31/20, 06/27/2020, 07/16/2018, Additional history exists COVID-19 Vaccine ( season) 2024 05/31/2021, 11/17/2020, 10/27/2020 DTaP,Tdap,and Td Vaccines (9 - Td or Tdap) 11/29/2033 11/30/2023, 09/27/2021, 05/09/2012, Additional history exists Hepatitis B Vaccines Completed 08/22/2000, 01/09/2000, 1999 HIB Vaccines Completed 01/02/2001, 05/09, 03/23/2000, Additional history exists Pneumococcal Vaccine Completed 01/02/2001, 08/22/2000, 05/23/2000, Additional history exists IPV Vaccines Completed 12/21/2003, 04/09, 03/23/2000, Additional history exists MMR Vaccines Completed 12/21/2003, 11/12/2000 Varicella Vaccines Completed 05/21/2013, 11/12/2000 Meningococcal Vaccine Aged Out 12/03/2018, 013 No longer eligible based on patient's age to complete this topic Hepatitis A Vaccines Aged Out No long er eligible based on patient's age to complete this topic Men B Vaccine Aged Out No longer elig ible based on patient's age to complete this topic Procedures * Due to [place] [employer] law, this organization might not be sharing sensitive test results. Procedure Name Priority Date/Time Associated Diagnosis Comments LIPID PANEL Routine 12/20/2018 8:49 AM EDT BMI (body mass index), pediatric, greater than or equal to 95% for age GLUCOSE, RANDOM Routine 12/20/2018 8:49 AM EDT BMI (body mass index), pediatric, greater than or equal to 95% for age from Last 3 Months or Most Recently Relevant to Health Maintenance Results * Due to [place] [employer] law, this organization might not be sharing sensitive test results. * Glucose, random (12/20/2018 8:49 AM EDT) Glucose 84 (70-99) MG/DL [facility] Comment: Testing performed or reported by [facility], a Service of [address] [address] Blood 12/20/2018 8:49 AM EDT 12/20/2018 8:55 AM EDT Karl Luna MD LAB BLOOD ORDERABLES Final Resul t [facility] * (ABNORMAL) Lipid panel (12/20/2018 8:49 AM EDT) Cholesterol, Total 150 (<170) MG/DL [facility] HDL 22(L) (>45) MG/DL [facility] Non-HDL Cholesterol 128(H) (<120) MG/DL [facility] Comment: Testing performed or reported by [facility], a Service of [address] [address] Blood 12/20/2018 8:49 AM EDT 12/20/2018 8:55 AM EDT us Karl Luna MD LAB BLOOD ORDERABLES Final Resul t [facility] from Last 3 Months or Most Recently Relevant to Health Maintenance Insurance [address] [address] NON [facility]
--- OUTSIDE RECORDS SUMMARY | 2024-08-07 17:44 | XMS_ITS | Encounter Summary ---
Author Organization [facility] Address [address] [place] [address] Phone Care Team Providers Care Community Relations Officer Name Role Phone Radha Christian MD Primary Care Provider Unava ilable Reason for Visit * Reason Comments Med Refill Encounter Details Date Type Department Care Team (Late st Contact Info) Description 03/18/2017 Refill [facility] - [address] [address] Radha Christian MD Agitation (Primary Dx) Social History Tobacco Use Types Packs/Day Years Used Date Smoking Tobacco: Never Comments:Never smoker Sex and Gender Information Value Date Recorded Sex Assigned at Not on file Legal Sex Male 5:23 PM EDT Gender Identity Not on file Sexual Orientation Not on file documented as of this encounter Miscellaneous Notes * Telephone Encounter - Maryam Shepard LPN - 03/19/2017 10:33 AM EDT Had medical Clear. 11/22 Last pe 04/22 documented in this encounter Plan of Treatment Not on file documented as of this encounter Visit Diagnoses Diagnosis Agitation- Primary Other and unspecified special symptom or syndrome, not elsewhere classified documented in this encounter Care Teams Community Relations Officer Relationship Specialty Start Date End Date Radha Chritsian MD PCP - General 02/16/17 08/08/17 documented as of this encounter
--- OUTSIDE RECORDS SUMMARY | 2024-08-07 17:44 | XMS_ITS | Encounter Summary ---
Author Organization [facility] Address [address] [place] [address] Phone Care Team Providers Care Fire Prevention Research Engineer Name Role Phone Radha Christian MD Primary Care Provider Unava ilable Encounter Details Date Type Department Care Team (Late st Contact Info) Description 02/22/2017 Conversion Encounter [facility] - [address] [address] Social History Tobacco Use Types Packs/Day Years [...] on filedocumented in this encounter Care Teams Fire Prevention Research Engineer Relationship Specialty Start Date End Date Radha Christian MD PCP - General 02/16/17 08/08/17 documented as of this encounter
--- OUTSIDE RECORDS SUMMARY | 2024-08-07 17:44 | XMS_ITS | Encounter Summary ---
Author Organization [facility] Address [address] [place] [address] Phone Care Team Providers Care Claims Correspondence Clerk Name Role Phone Radha Christian MD Primary Care Provider Unava ilable Encounter Details Date Type Department Care Team (Late st Contact Info) Description 01/25/2016 Documentation EM Family Medicine [address] [place], [place] [phone] Family Medicine, Physician [address] [place] [address] Social History Tobacco Use Types Packs/Day Years [...] on filedocumented in this encounter Care Teams Claims Correspondence Clerk Relationship Specialty Start Date End Date Radha Christian MD PCP - General 02/16/17 08/08/17 documented as of this encounter
== END 2024-08-07 15:20 | disposition home or self-care (01) ==
PROVIDERS: PCP Nurse Practitioner Family; Visit Provider Nurse Practitioner Family
DX: Z01.818 Encounter for other preprocedural examination (principal)

== ENCOUNTER → 2024-08-07 13:51 | Outpatient (BNVA) | payer OTHER, MEDICAID, SELFPAY | PROVIDERS: PCP Nurse Practitioner Family; Visit Provider Nurse Practitioner Family | DX: Z01.818 Encounter for other preprocedural examination (principal) | CPT/HCPCS: 96127 ==

== ENCOUNTER 2024-08-13 13:17 | Outpatient (REF) | payer MEDICAID, SELFPAY ==
--- OUTSIDE RECORDS SUMMARY | 2024-08-13 14:45 | XMS_ITS | Encounter Summary ---
Author Organization [facility] Address [address] [place] [address] Phone Care Team Providers Care Title Curative Specialist Name Role Phone Radha Christian MD Primary Care Provider Unava ilable Encounter Details Date Type Department Care Team (Late st Contact Info) Description 09/22/2016 Documentation EM Family Medicine [address] [place], [place] [phone] Family Medicine, Physician [address] [place] [address] Social History Tobacco Use Types Packs/Day Years [...] on filedocumented in this encounter Care Teams Title Curative Specialist Relationship Specialty Start Date End Date Radha Christian MD PCP - General 02/16/17 08/08/17 documented as of this encounter
--- OUTSIDE RECORDS SUMMARY | 2024-08-13 14:45 | XMS_ITS | Encounter Summary ---
Author Organization [facility] Address [address] [place] [address] Phone Care Team Providers Care Mechanical Maintenance Worker Name Role Phone Radha Christian MD Primary Care Provider Unava ilable Encounter Details Date Type Department Care Team (Late st Contact Info) Description 02/22/2017 Conversion Encounter [facility] - [address] [address] Social History Tobacco Use Types Packs/Day Years [...] on filedocumented in this encounter Care Teams Mechanical Maintenance Worker Relationship Specialty Start Date End Date Radha Christian MD PCP - General 02/16/17 08/08/17 documented as of this encounter
--- OUTSIDE RECORDS SUMMARY | 2024-08-13 14:45 | XMS_ITS | Encounter Summary ---
Author Organization [facility] Address [address] [place] [address] Phone Care Team Providers Care Clubhouse Attendant Name Role Phone Radha Christian MD Primary Care Provider Unava ilable Reason for Visit * Reason Comments Med Refill Encounter Details Date Type Department Care Team (Late st Contact Info) Description 03/18/2017 Refill [facility] - [address] [address] Radha Christian MD Agitation (Primary Dx) Social [...] classified documented in this encounter Care Teams Clubhouse Attendant Relationship Specialty Start Date End Date Radha Christian MD PCP - General 02/16/17 08/08/17 documented as of this encounter
--- OUTSIDE RECORDS SUMMARY | 2024-08-13 14:45 | XMS_ITS | Encounter Summary ---
Author Organization [facility] Address [address] [place] [address] Phone Care Team Providers Care Sheet Metal Assembler Name Role Phone Radha Christian MD Primary Care Provider Unava ilable Encounter Details Date Type Department Care Team (Late st Contact Info) Description 12/12/2016 Documentation EM Family Medicine [address] [place], [place] [phone] Family Medicine, Physician [address] [place] [address] Social History Tobacco Use Types Packs/Day Years [...] on filedocumented in this encounter Care Teams Sheet Metal Assembler Relationship Specialty Start Date End Date Radha Christian MD PCP - General 02/16/17 08/08/17 documented as of this encounter
--- OUTSIDE RECORDS SUMMARY | 2024-08-13 14:45 | XMS_ITS | Clinical Summary ---
Author Organization [facility] Address [address] [place] [address] Phone Care Team Providers Care Tiler'S Assistant Name Role Phone Unavailable Primary Care Provider [...] spectrum disorder 08/11/2009 Overview (10/11/2017): Goes to [employer] in [place]. Psych affiliated with the school prescribes his [...] complete this topic Procedures * Due to [place] [employer] law, this organization might not be sharing [...] to Health Maintenance Results * Due to [place] law, this organization might not be sharing sensitive test results. * Glucose, random (12/20/2018 8:49 AM EDT) Glucose 84 (70-99) MG/DL [facility] Comment: Testing performed or reported by [facility], a Service of [address] [address] Blood 12/20/2018 8:49 AM EDT 12/20/2018 8:55 AM EDT Karl Luna MD LAB BLOOD ORDERABLES Final Resul t [facility] * (ABNORMAL) Lipid panel (12/20/2018 8:49 AM EDT) Cholesterol, Total 150 (<170) MG/DL [facility] HDL 22(L) (>45) MG/DL [facility] Non-HDL Cholesterol 128(H) (<120) MG/DL [facility] Comment: Testing performed or reported by [facility], a Service of [address] [address] Blood 12/20/2018 8:49 AM EDT 12/20/2018 8:55 AM EDT us Karl Luna MD LAB BLOOD ORDERABLES Final Resul t [facility] from Last 3 Months or Most Recently Relevant to Health Maintenance Insurance [address] [address] NON [facility]
--- OUTSIDE RECORDS SUMMARY | 2024-08-13 14:45 | XMS_ITS | Encounter Summary ---
Author Organization [facility] Address [address] [place] [address] Phone Care Team Providers Care Pipe Or Steam Fitter Furnace Installer Name Role Phone Radha Christian MD Primary Care Provider Unava ilable Encounter Details Date Type Department Care Team (Late st Contact Info) Description 01/25/2016 Documentation EM Family Medicine [address] [place], [place] [phone] Family Medicine, Physician [address] [place] [address] Social History Tobacco Use Types Packs/Day Years [...] on filedocumented in this encounter Care Teams Pipe Or Steam Fitter Furnace Installer Relationship Specialty Start Date End Date Radha Christian MD PCP - General 02/16/17 08/08/17 documented as of this encounter
--- OUTSIDE RECORDS SUMMARY | 2024-08-13 14:45 | XMS_ITS | Encounter Summary ---
Author Organization [facility] Address [address] [place] [address] Phone Care Team Providers Care Drying And Winding Supervisor Name Role Phone Radha Christian MD Primary Care Provider Unava ilable Encounter Details Date Type Department Care Team (Late st Contact Info) Description 11/07/2016 Documentation EM Family Medicine [address] [place], [place] [phone] Family Medicine, Physician [address] [place] [address] Social History Tobacco Use Types Packs/Day Years [...] on filedocumented in this encounter Care Teams Drying And Winding Supervisor Relationship Specialty Start Date End Date Radha Christian MD PCP - General 02/16/17 08/08/17 documented as of this encounter
--- OUTSIDE RECORDS SUMMARY | 2024-08-13 14:45 | XMS_ITS | Encounter Summary ---
Author Organization [facility] Address [address] [place] [address] Phone Care Team Providers Care Marine Cargo Inspector Name Role Phone Radha Christian MD Primary Care Provider Unava ilable Encounter Details Date Type Department Care Team (Late st Contact Info) Description 12/12/2016 Documentation EM Family Medicine [address] [place], [place] [phone] Family Medicine, Physician [address] [place] [address] Social History Tobacco Use Types Packs/Day Years [...] on filedocumented in this encounter Care Teams Marine Cargo Inspector Relationship Specialty Start Date End Date Radha Christian MD PCP - General 02/16/17 08/08/17 documented as of this encounter
[2024-08-13 16:30] LABS: MANUAL DIFF FLAG NO
[2024-08-13 16:38] LABS: Basophils Absolute Auto 0.1 X10*3/uL (0.0-0.2); Basophils Percent Auto 0.9 % (0-2); Eosinophils Absolute Auto 0.3 X10*3/uL (0.0-0.4); Eosinophils Percent Auto 2.7 % (0-4); Hematocrit 42.9 % (42.0-52.0); Hemoglobin 14.7 g/dl (14.0-18.0); Imm Gran Abs Auto 0.19 X10*3/uL (0.00-0.03); Imm Gran Pct Auto 1.8 % (0.0-0.4); Lymphocytes Absolute Auto 1.9 X10*3/uL (1.2-4.9); Lymphocytes Percent Auto 17.6 % (20-40); Mean Corpuscular HGB Conc 34.3 g/dl (31.0-36.0); Mean Corpuscular Hemoglobin 30.6 pg (27.0-33.0); Mean Corpuscular Volume 89.4 fL (80.0-98.0); Mean Platelet Volume 10.1 fL (9.4-12.4); Monocytes Percent Auto 9.8 % (2-11); Neutrophils Absolute Auto 7.1 x10*3/uL (2.0-8.3); Neutrophils Percent Auto 67.2 % (45-73); Platelet Count 366 X10*3/uL (160-400); Red Cell Distribution Width 12.5 % (11.0-16.0); White Blood Count 10.6 X10*3/uL (4.8-10.8)
[2024-08-13 16:55] LABS: Alanine Aminotransferase 29 U/L (0-40); Anion Gap 13 (12-20); Aspartate Amino Transferase 41 U/L (5-37); Bilirubin Total 0.2 mg/dL (0.0-1.0); Blood Urea Nitrogen 11 mg/dL (9-16); Calcium 9.4 mg/dL (8.4-10.2); Carbon Dioxide 17 mmol/L (22-29); Chloride 114 mmol/L (96-108); Estimated Glomerular Filt Rate > 60; Glucose Random 116 mg/dL (60-115); Potassium 4.3 mmol/L (3.3-5.1); Sodium 140 mmol/L (135-145); Total Protein 7.9 g/dL (6.5-8.0)
[2024-08-13 17:19] LABS: Alkaline Phosphatase 62 U/L (39-117); TSH reflex Free T4 0.63 uIU/mL (0.32-4.0)
== END 2024-08-13 13:18 | disposition home or self-care (01) ==
LOC: HO.HMGCLDS 13:17
PROVIDERS: PCP Nurse Practitioner Family; Visit Provider Nurse Practitioner Family
DX: Z01.818 Encounter for other preprocedural examination (principal)
CPT/HCPCS: 36415; 80053; 84443; 85025

== ENCOUNTER 2024-10-28 13:56 | Outpatient (AMB) | payer OTHER, MEDICAID, SELFPAY ==
--- NOTE | 2024-10-28 13:59 | A.OFFPC_ITS ---
Vital Signs 10/28/24 14:06 Height 6 ft Weight 245 lb BMI 33.2 BP 106/64 Blood Pressure Location Rt brachial Position Sitting Respiration 20 Pulse 68 Pulse Source Pulse Oximeter Temp 98.4 F Temp Source Oral Pulse Oximetry (%) 96 Oxygen Delivery Method Room Air Intake Visit Reasons: PE Intake Note: Pt is here today for PE. Allergies No Known Allergies Allergy (Verified 10/28/24 14:18) Medication List - Last Reconciled 10/28/24 by JELLY Aguila- clonidine HCl 0.3 mg PO BEDTIME docusate sodium (Colace) 100 mg PO BID 90 days fenofibrate 54 mg PO QAM fluoxetine 40 mg PO fluticasone propionate 50 mcg/actuation 2 sprays intranasal DAILY hydroxyzine HCl 50 mg PO BEDTIME ibuprofen 600 mg PO Q8H PRN 30 days lorazepam (Ativan) 1 mg PO TID PRN melatonin 3 mg PO BEDTIME omega-3 acid ethyl esters 1 cap PO BID polyethylene glycol 3350 (Miralax) 17 grams PO DAILY PRN 30 days propranolol 1 po q am and 1 1/2 po q 3 pm quetiapine mg PO TID quetiapine (Seroquel) 100 mg PO BID selenium sulfide 2.25% 1 appl topical BEDTIME PRN topiramate (Topamax) 100 mg PO BEDTIME Tobacco use date assessed: 10/28/24 Dental Screening Dental Screen Date: 10/28/24 Did you have a dental visit in the last 12 months?: No Did you have a dental problem in the last 6 months where you did not have access to dental care?: No Was dental information given to patient?: Patient declined HPI PE HPI Details History of Present Illness The patient is a 23-year-old male presenting with concerns related to cerumen impaction management and general physiological examination. He is documented with autism spectrum disorder, exhibiting primarily nonverbal communication and residing in a care home setting. The cerumen issue has necessitated inclusion of Debrox in his medication regimen to manage earwax buildup, with further monitoring required to evaluate the need for ear flushing. His autism spectrum disorder manifests in limited verbal expression but includes responsiveness to small cues. The patient is somewhat incontinent of urine, routinely using diapers for management. In terms of weight, the patient is categorized as obese. During interactions, he demonstrated auditory responsiveness by head-turning when spoken to, indicating no obvious auditory deficits. Visual function appears uncompromised at the present moment. Encouraged staff member to have pt get his labs drawn in the near future (fasing) Health Maintenance - Use of Debrox for cerumen management - Monitoring of cerumen impaction and po tential need for ear flushing Social History - Resides in a care home environment - Uses diapers regularly due to urinary incontinence - Limited verbal communication related t o autism spectrum disorder Review of Systems - Neurological: Denies any squinting, in dicating no current concerns with vision. - Audiological: Responds to auditory cue s, no verbal feedback. -staff member denies any signs of cp, so b, n/v, blood in stool, dysuria, fevers, chills. Physical Exam General: Cooperative, healthy appearing, comfortable, no acute distress and well developed. Patient is autistic and mostly nonverbal. He is somewhat incontinent of urine and wears a diaper on a regular basis. He is obese. Orientation: Patient oriented x3 Limitations: No limitations Head: Normal to inspection Ears: Cerumen noted bilaterally. Hearing grossly normal bilaterally as he seems to turn his head when spoken to. Nose: Normal external nose present Face and sinus: Normal facial exam Eyes: Appearance normal, both eyes and all related structures. No squinting observed, no visual issues suspected. Neck: Normal visual inspection and Yes full ROM Respiratory: Normal respiratory effort and able to speak in complete sentences. Clear to auscultation bilaterally Cardiovascular: Regular rate and rhythm. Normal S1 and S2 GI: Normal to inspection. Soft to palpation and nontender Skin: No rashes or lesions noted Neuro: Patient oriented x3 Extremities: Normal to inspection Results Plan The approach includes continued use of Debrox for cerumen impaction, with plans to follow up in six months to evaluate further ear interventions if necessary. Obesity and urinary incontinence were recognized but not addressed in detail within this visit. The patient's care routine involves staff supervision for adherence to the care plan, emphasizing the importance of routine ear hygiene practices and monitoring auditory responses. Discussion Notes During this visit, I discussed with the patient's staff member the importance of adhering to the Debrox regimen for managing the patient's cerumen impaction. We deliberated on the necessity of regular application of ear drops and scheduled a follow-up appointment for six months hence to assess the need for any further action like ear flushing. No immediate concerns regarding vision were noted, and functional hearing appears intact based on indirect observations. There was a consensus on the current approach to manage the cerumen and the importance of maintaining this within the residential context. Patient Instructions - Use Debrox as directed for earwax arielle celaya. - [facility]. - Attend a follow-up appointment in six months for ear evaluation. - Monitor for any changes in behavior or ear discomfort. [facility] Medical History Splenomegaly Fatty liver Acanthosis nigricans Surgical History No pertinent past surgical history Family History Brother Mental health disorder Paternal Uncle Mental health disorder Social History Housing: House Patient Tobacco Use Status: Never used Tobacco e-Cigarette/Vaping Use: Never Used Second Hand Smoke Exposure: No service: No Current occupational status: disabled Cognitive needs: Yes Hearing needs: Yes Vision needs: Yes Questionnaire PHQ-9 Over the last 2 weeks, how often have you been bothered by any of the following problems? 56316 - PHQ-9 Billing: Patient declined-do not bill (pt is nonverbal, no signs of abuse) Source: Developed by Drs. Joey Hall, Claudia Robin, Ulices Garces and colleagues, with an educational lisa from [employer]. Thrive Questionnaire Date Thrive assessed: 07/31/24 I am a: Parent/Caregiver What is your living situation today?: I have a steady place to live Within the past 12 months, did the food you bought not last and you didn't have the money to get more?: Never true Within the past 12 months, did you worry whether your food would run out before you got money to buy more?: Never true Do you have trouble paying for medicines?: No Do you have trouble getting transportation to medical appointments?: No Do you have trouble paying your heating and electricity bill?: No Do you have trouble taking care of your child, family member or friend?: No Do you have trouble with day-to-day activities such as bathing, preparing meals, shopping, managing finances, etc.?: Yes Are you currently unemployed and looking for a job?: No Are you interested in more education?: No Please select the resources that you would like help with: None Currently or been in a relationship where the following occur: I choose not to answer THRIVE Score: 0 AUDIT C Alcohol Use Questionnaire (AUDIT-C) 1. How often do you have a drink containing alcohol?: Never 3. How often do you have six or more drinks on one occasion?: Never Total Score: 0 Score Reviewed/Action Taken: No ELOISA-7 AMB Questionnaire ELOISA-7 Date ELOISA - 7 assessed: 08/07/24 Source: Developed by Drs. Joey Hall, Claudia Robin, Ulices Garces and colleagues, with an educational lisa from [employer]. ELOISA-7 Assessment Billing ELOISA-7 Assessment Tool: ELOISA-7 Assessment 42426 (nonverbal, no signs of anxiety) Physical exam (Primary Care) Vital Signs: Last Vital Signs Temp 98.4 F 10/28/24 14:06 Pulse 68 10/28/24 14:06 Resp 20 10/28/24 14:06 BP 106/64 10/28/24 14:06 Pulse Ox 96 10/28/24 14:06 Oxygen Delivery Method Room Air 10/28/24 14:06 BMI result Body Mass Index 33.2 Tobacco/Smoking Status: Tobacco use Status Tobacco use date assessed 10/28/24 10/28/24 14:14 Patient Tobacco Use Status Never used Tobacco 10/28/24 13:59 e-Cigarette/Vaping Use Never Used 10/28/24 13:59 Thrive Assessment: Date of Thrive Assessment Date Thrive assessed 07/31/24 10/28/24 13:59 Currently or been in a relationship where the following occur: I choose not to answer Coding Level of Care Code Est Pt Prev Care 18-39y(27726) Diagnoses Physical exam Z00.00 Cerumen impaction H61.20 Additional Codes ELOISA-7 Assessment Billing - ELOISA-7 Assessment Tool: ELOISA-7 Assessment 23733 ([id number]) Assessment & Plan Assessment & Plan (1) Physical exam: Code(s): Z00.00 - Encounter for general adult medical examination without abnormal findings Category: Medical (2) Cerumen impaction: Code(s): H61.20 - Impacted cerumen, unspecified ear Category: Medical Plan .
[2024-10-28 14:06] VITALS: BP 106/64; PULSE 68; RESP 20; TEMP 36.9; O2SAT 96; BMI 33.2
--- OUTSIDE RECORDS SUMMARY | 2024-10-28 16:42 | XMS_ITS | Clinical Summary ---
Author Organization [facility] Address [address] [place] [address] Phone Care Team Providers Care Credit Collections Clerk Name Role Phone Unavailable Primary Care Provider [...] spectrum disorder 08/11/2009 Overview (10/11/2017): Goes to [email or web address] in [place]. Psych affiliated with the school prescribes his medication. Is on seroquel tid, propranolol bid, topamax bid, and clonidine qhs for sleep. 10/24. Parents are applying for guardianship as he approaches age 17. 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 * Glucose, random (12/20/2018 8:49 AM EDT) Glucose 84 (70-99) MG/DL [facility] Comment: Testing performed or reported by [facility], a Service of [address] [address] Blood 12/20/2018 8:49 AM EDT 12/20/2018 8:55 AM EDT Karl Luna MD LAB BLOOD ORDERABLES Final Resul t [facility] * (ABNORMAL) Lipid panel (12/20/2018 8:49 AM EDT) Cholesterol, Total 150 (<170) MG/DL [facility] HDL 22(L) (>45) MG/DL [facility] Non-HDL Cholesterol 128(H) (<120) MG/DL [facility] Comment: Testing performed or reported by [facility], a Service of [address] [address] Blood 12/20/2018 8:49 AM EDT 12/20/2018 8:55 AM EDT us Karl Luna MD LAB BLOOD ORDERABLES Final Resul t ADRIAN from Last 3 Months or Most Recently Relevant to Health Maintenance Insurance [place] [address] NON [facility] [place] [employer]
--- OUTSIDE RECORDS SUMMARY | 2024-10-28 16:43 | XMS_ITS | Encounter Summary ---
Author Organization [facility] Address [address] [place] [address] Phone Care Team Providers Care Cartographic Aide Name Role Phone Radha Christian MD Primary Care Provider Unava ilable Encounter Details Date Type Department Care Team (Late st Contact Info) Description 02/22/2017 Conversion Encounter [facility] - [address] [address] Social History Tobacco Use Types Packs/Day Years [...] on filedocumented in this encounter Care Teams Cartographic Aide Relationship Specialty Start Date End Date Radha Chrsitian MD PCP - General 02/16/17 08/08/17 documented as of this encounter
--- OUTSIDE RECORDS SUMMARY | 2024-10-28 16:43 | XMS_ITS | Encounter Summary ---
Author Organization [facility] Address [address] [place] [address] Phone Care Team Providers Care Water Well Driller Name Role Phone Radha Christian MD Primary Care Provider Unava ilable Encounter Details Date Type Department Care Team (Late st Contact Info) Description 11/07/2016 Documentation EM Family Medicine [address] [place], [place] [phone] Family Medicine, Physician [address] [place] [address] Social History Tobacco Use Types Packs/Day Years [...] on filedocumented in this encounter Care Teams Water Well Driller Relationship Specialty Start Date End Date Radha Christian MD PCP - General 02/16/17 08/08/17 documented as of this encounter
--- OUTSIDE RECORDS SUMMARY | 2024-10-28 16:43 | XMS_ITS | Encounter Summary ---
Author Organization [facility] Address [address] [place] [address] Phone Care Team Providers Care Agricultural Research Technologist Name Role Phone Radha Christian MD Primary Care Provider Unava ilable Encounter Details Date Type Department Care Team (Late st Contact Info) Description 12/12/2016 Documentation EM Family Medicine [address] [place], [place] [phone] Family Medicine, Physician [address] [place] [address] Social History Tobacco Use Types Packs/Day Years [...] on filedocumented in this encounter Care Teams Agricultural Research Technologist Relationship Specialty Start Date End Date Radha Christian MD PCP - General 02/16/17 08/08/17 documented as of this encounter
--- OUTSIDE RECORDS SUMMARY | 2024-10-28 16:43 | XMS_ITS | Encounter Summary ---
Author Organization [facility] Address [address] [place] [address] Phone Care Team Providers Care Corn Crop Supervisor Name Role Phone Radha Christian MD Primary Care Provider Unava ilable Encounter Details Date Type Department Care Team (Late st Contact Info) Description 01/25/2016 Documentation EM Family Medicine [address] [place], [place] [phone] Family Medicine, Physician [address] [place] [address] Social History Tobacco Use Types Packs/Day Years [...] on filedocumented in this encounter Care Teams Corn Crop Supervisor Relationship Specialty Start Date End Date Radha Christian MD PCP - General 02/16/17 08/08/17 documented as of this encounter
--- OUTSIDE RECORDS SUMMARY | 2024-10-28 16:43 | XMS_ITS | Encounter Summary ---
Author Organization [facility] Address [address] [place] [address] Phone Care Team Providers Care Leg Breaker Name Role Phone Radha Christian MD Primary Care Provider Unava ilable Encounter Details Date Type Department Care Team (Late st Contact Info) Description 09/22/2016 Documentation EM Family Medicine [address] [place], [place] [phone] Family Medicine, Physician [address] [place] [address] Social History Tobacco Use Types Packs/Day Years [...] on filedocumented in this encounter Care Teams Leg Breaker Relationship Specialty Start Date End Date Radha Christian MD PCP - General 02/16/17 08/08/17 documented as of this encounter
--- OUTSIDE RECORDS SUMMARY | 2024-10-28 16:43 | XMS_ITS | Encounter Summary ---
Author Organization [facility] Address [address] [place] [address] Phone Care Team Providers Care Analytics Architect Name Role Phone Radha Christian MD Primary Care Provider Unava ilable Reason for Visit * Reason Comments Med Refill Encounter Details Date Type Department Care Team (Late st Contact Info) Description 03/18/2017 Refill [facility] - [address] [address] Radha Christian MD Agitation (Primary Dx) Social [...] classified documented in this encounter Care Teams Analytics Architect Relationship Specialty Start Date End Date Radha Christian MD PCP - General 02/16/17 08/08/17 documented as of this encounter
--- OUTSIDE RECORDS SUMMARY | 2024-10-28 16:43 | XMS_ITS | Encounter Summary ---
Author Organization [facility] Address [address] [place] [address] Phone Care Team Providers Care Flat Surfacer Jewel Name Role Phone Radha Christian MD Primary Care Provider Unava ilable Encounter Details Date Type Department Care Team (Late st Contact Info) Description 12/12/2016 Documentation EM Family Medicine [address] [place], [place] [phone] Family Medicine, Physician [address] [place] [address] Social History Tobacco Use Types Packs/Day Years [...] on filedocumented in this encounter Care Teams Flat Surfacer Jewel Relationship Specialty Start Date End Date Radha Christian MD PCP - General 02/16/17 08/08/17 documented as of this encounter
== END 2024-10-28 15:17 | disposition home or self-care (01) ==
LOC: HO.HMCC 13:56
PROVIDERS: PCP Nurse Practitioner Family; Visit Provider Nurse Practitioner Family
DX: Z00.00 Encounter for general adult medical examination without abnormal findings (principal); H61.23 Impacted cerumen, bilateral

== ENCOUNTER → 2024-10-28 13:56 | Outpatient (BNVA) | payer OTHER, MEDICAID, SELFPAY | PROVIDERS: PCP Nurse Practitioner Family; Visit Provider Nurse Practitioner Family | DX: Z00.00 Encounter for general adult medical examination without abnormal findings (principal); H61.20 Impacted cerumen, unspecified ear; F84.0 Autistic disorder | CPT/HCPCS: 96127 ==